=== PATIENT | female | born 2000 | race Two or more races ===

== ENCOUNTER 2022-08-27 08:38 | Emergency (ER) | payer OTHER ==
[~2022-08-27] VITALS: Ht 160 cm; Wt 52.2 kg
[2022-08-27] MEDS ORDERED: MUPIROCIN22 GM TOP (10:08)
== END 2022-08-27 10:19 | disposition home or self-care (01) ==
LOC: ER 08:38 → EMR PED 08:38 → ER 09:10
DX: S01.112A Laceration without foreign body of left eyelid and periocular area, initial encounter (principal); W22.8XXA Striking against or struck by other objects, initial encounter; Y93.9 Activity, unspecified; Y92.9 Unspecified place or not applicable; Y99.9 Unspecified external cause status